=== PATIENT | male | born 1960 | race Native Hawaiian/Other Pacific Islander ===

== ENCOUNTER 2018-07-25 20:40 | Emergency (ER) | payer OTHER ==
[~2018-07-25] VITALS: Ht 188 cm; Wt 81.6 kg
[~2018-07-25 20:40] MED LIST: ALPR0.5T24 PO; ARIPIPRAZOLE OD15 MG PO; ARIPIPRAZOLE15 MG PO; DIVA500T2 PO; DIVALPROEX500 MG PO; DOCU100C10 PO; INSU100P SC; LEVEMIR FL100 UNIT/M SC; NOVOLOG100 MG/ML SC; PRILOSEC OTC20 MG PO; RISP0.5T2 PO; RISP1TAB PO; VALP250C3 PO; ZESTRIL40 MG PO; ZOFRAN8 MG PO
[2018-07-25 21:13] LABS: PLATELET COUNT 275 K/uL (142-355)
[2018-07-25 21:21] LABS: POTASSIUM 3.9 mmol/L (3.6-5.2)
[2018-07-25 22:20] VITALS: BP 141/79; TEMP 97.7
[2018-07-25] MEDS ORDERED: OMEPRAZOLE DR20 MG PO (23:25)
[2018-07-25] MEDS ORDERED: ZESTRIL40 MG PO (23:29)
[2018-07-25] MEDS ORDERED: ARIPIPRAZOLE30 MG PO (23:31)
[2018-07-25] MEDS ORDERED: DIVA500T2 PO (23:34)
[2018-07-25] MEDS ORDERED: RISP0.5T2 PO (23:35)
[2018-07-25] MEDS ORDERED: NOVOLOG FL100 UNIT/M SC (23:39)
[2018-07-25] MEDS ORDERED: LEVEMIR FL100 UNIT/M SC (23:41)
[2018-07-25] MEDS ORDERED: RISP1TAB PO (23:42)
[2018-07-25] MEDS ORDERED: TYLENOL325 MG PO (23:45)
== END 2018-07-25 22:20 | disposition other institution (70) ==
LOC: ED 20:40
PROVIDERS: Internal Medicine
DX: N39.0 Urinary tract infection, site not specified (principal); F20.89 Other schizophrenia; E11.9 Type 2 diabetes mellitus without complications; I10 Essential (primary) hypertension; Z04.6 Encounter for general psychiatric examination, requested by authority
CPT/HCPCS: 36415; 80053; 81000; 85027; 87077; 87086; 87088; 87186; 93005; 99285